=== PATIENT | male | born 1945 | race Two or more races ===

== ENCOUNTER 2017-04-22 13:59 | Emergency (ER) | payer OTHER ==
[~2017-04-22] VITALS: Ht 165.1 cm; Wt 58.1 kg
[~2017-04-22 13:59] MED LIST: IBUPROFEN600 MG ORAL; NKM; VICODIN 5-5001 EACH PO
[2017-04-22 14:10] VITALS: BP 128/80
--- NOTE | 2017-04-22 14:27 | Emergency Room Report ---
History of Present Illness General Chief Complaint: Upper Extremity Injury Source: Patient Present Illness HPI The patient is a 71-year-old male presenting for right shoulder pain. The patient states that he had a rotator cuff tear in 2013 but may have reinjured the shoulder yesterday. He states that he lifted a heavy object off of the floor and heard a popping sound. He states the pain was not significant at that time but then awoke today with pain and decreased range of motion. Pain is described as an 8/10 dull ache and does not radiate from the shoulder. He denies any numbness or tingling. Pain worse with movement. He admits to weakness of the shoulder. He states that he is not able to lift his arm. He denies any other symptoms including fever, chills, shortness of breath, chest pain Allergies: Coded Allergies: No Known Allergies (Unverified , 03/02/13) Patient History Past Medical History: see triage record Pertinent Family History: none Reviewed Nursing Documentation: PMH: Agreed, PSxH: Agreed Review of Systems All Other Systems: negative except mentioned in HPI Physical Exam Vital Signs Date Time Temp Pulse Resp B/P Pulse Ox O2 Delivery O2 Flow Rate FiO2 04/22/17 14:10 98.2 73 17 128/80 96 Room Air Sp02 EP Interpretation: reviewed, normal General Appearance: no apparent distress, alert, GCS 15, non-toxic Head: normocephalic, atraumatic Eyes: bilateral eye PERRL, bilateral eye normal inspection ENT: hearing grossly normal, normal pharynx, no angioedema, normal voice Neck: full range of motion, supple/symm/no masses Respiratory: chest non-tender, lungs clear, normal breath sounds, speaking full sentences Musculoskeletal: decreased range of motion - R shoulder, swelling - anterior R shoulder, tender - R anterior deltoid Neurologic: alert, oriented x3, responsive, sensory intact, normal gait, speech normal, motor weakness - R shoulder Psychiatric: judgement/insight normal, memory normal, mood/affect normal, no suicidal/homicidal ideation Skin: normal color, no rash, warm/dry, well hydrated Lymphatic: no adenopathy Procedures Splinting Splinting : Consent: Verbal Location: R shoulder Pre-Made Type: sling Pre-Proc Neuro Vasc Exam: normal Post-Proc Neuro Vasc Exam: normal Patient Tolerated: Well Complications: None Medical Decision Making PA Attestation Dr. Da Silva is my supervising physician. Patient management was discussed with my supervising physician Diagnostic Impression: Primary Impression: Right shoulder strain Qualified Codes: S46.911A - Strain of unspecified muscle, fascia and tendon at shoulder and upper arm level, right arm, initial encounter ER Course The patient is a 71-year-old male presenting for right shoulder pain Ddx considered include but not limited to sprain/strain, fracture, contusion, RTC injury, dislocation, among others PE: vitals WNL. NAD Right shoulder: There is tender to palpation over the anterior deltoid as well as soft tissue swelling. No ecchymosis. There is limited active range of motion with flexion and abduction past approximately 20. Full active range of motion of elbow and wrist X-ray is unremarkable for acute changes. A sling is placed of the right arm The patient will be discharged home with a prescription for Motrin and will followup with primary doctor and workers compensation. He was informed he may need MRI. ER precautions given Other X-Ray Diagnostic Results # of Views/Limited Vs Complete: 3 View EP Interpretation: Yes Interpretation: no fractures, no dislocation, no soft tissue swelling Indication: Pain Impression: No acute disease Interpreting ER Provider: Dr. Da Silva PA Scribe Text I am acting as scribe for my supervising physician. My supervising physician's interpretation of the R shoulder xrays are there are no fractures, dislocations or soft tissue swelling. Last Vital Signs Date Time Temp Pulse Resp B/P Pulse Ox O2 Delivery O2 Flow Rate FiO2 04/22/17 14:10 98.2 73 17 128/80 96 Room Air Status: improved Disposition: HOME, SELF-CARE Condition: Improved Scripts Ibuprofen* (MOTRIN*) 600 Mg Tablet 600 MG ORAL Q8H Y for For Pain, #30 TAB 0 Refills Prov: CHAYITO RUDOLPH 04/22/17 CHAYITO RUDOLPH Apr 22, 2017 14:27
[2017-04-22] MEDS ORDERED: IBUPROFEN600 MG ORAL (15:06)
[2017-04-22 15:30] VITALS: BP 122/72
--- NOTE | 2017-04-25 08:53 | Diagnostic Imaging Report ---
Indication: PAIN Technique: 3 views of the right shoulder Comparison: none Findings: There are degenerative proliferative changes of the humeral head and glenoid. There is evidence of some osseous fragmentation of the acromion, superior glenoid, and greater tuberosity region, probably degenerative in nature. No definite acute fractures. No dislocations. The joint spaces are preserved. Impression:Degenerative changes, as described. No acute bony trauma
== END 2017-04-22 15:34 | disposition home or self-care (01) ==
LOC: EMR 14:36
DX: S46.911A Strain of unspecified muscle, fascia and tendon at shoulder and upper arm level, right arm, initial encounter (principal); X50.0XXA Overexertion from strenuous movement or load, initial encounter; Y93.9 Activity, unspecified; Y92.9 Unspecified place or not applicable
CPT/HCPCS: 29240; 99283